=== PATIENT | female | born 1980 | race Native Hawaiian/Other Pacific Islander ===

== ENCOUNTER 2018-05-14 15:36 | Emergency (ER) | payer BC ==
[~2018-05-14] VITALS: Ht 165.1 cm; Wt 72.6 kg
[2018-05-14 19:30] VITALS: BP 112/65; TEMP 98.1
== END 2018-05-14 19:30 | disposition home or self-care (01) ==
LOC: ED 15:36
DX: M79.18 Myalgia, other site (principal); R07.81 Pleurodynia; R07.89 Other chest pain
CPT/HCPCS: 96372; 99282; J1885